=== PATIENT | male | born 1980 | race Caucasian/White ===

== ENCOUNTER 2019-05-27 02:57 | Emergency (ER) | payer SELFPAY ==
[2019-05-27 04:25] VITALS: BP 161/87; PULSE 76; TEMP 97.6; BMI 30.3
--- NOTE | 2019-05-27 04:36 | PDOC ---
*Physical Exam - Vital Signs Last Vital Signs Temp Pulse Resp BP Pulse Ox 97.6 F 76 19 161/87 98 05/27/19 03:00 05/27/19 03:00 05/27/19 03:00 05/27/19 03:00 05/27/19 03:00 Medical Decision Making - Medical Decision Making 05/27/19 04:36 Patient seen by the advanced practice provider under my supervision. Ancillary testing reviewed as necessary. I agree with plan as outlined by the advanced practice provider. Discharge - Discharge Information Problems reviewed: Yes Clinical Impression/Diagnosis: Back contusion Qualifiers: Encounter type: initial encounter Laterality: left Qualified Code(s): S20.222A - Contusion of left back wall of thorax, initial encounter Condition: Fair Disposition: HOME - Additional Discharge Information Prescriptions: Cyclobenzaprine HCl 10 mg PO TID #21 tablet Ibuprofen [Motrin -] 600 mg PO QID #28 tablet - Follow up/Referral Referrals: Julian Whitlock MD [Staff Physician] - - Patient Discharge Instructions Patient Printed Discharge Instructions: DI for Rib Contusion Additional Instructions: Your Discharge Instructions: You must call primary care physician within 24 hours to arrange follow-up. Return to the Emergency Department with any new, persistent or worsening symptoms, for fever, chills, SOB, dizziness or any other concerning changes that may occur. Continue Tylenol and Motrin for pain as needed. - Post Discharge Activity Work/Back to School Note: Back to Work
--- NOTE | 2019-05-27 04:38 | PDOC ---
History of Present Illness - General Chief Complaint: Back Pain Stated Complaint: BACK PAIN History Source: Patient Exam Limitations: No Limitations - History of Present Illness Initial Comments: 05/27/19 04:32 Patient is a 38-year-old male with no past medical history here with complaints of left upper back pain x2 days. Patient states that he had an injury, tripped fell hitting his back on a windowsill. States the next day he had some pain but it was tolerable however pain progressively worsened and tonight unable to sleep. Described the pain as a sharp pain 8/10 with movement. States that if he sitting still the pain is a 3/10. He is unable to take a deep breath because of the pain. PMHX: neg PSOCHX: neg etoh, drug, cig FamHX: Noncontributory ALL: NKDA GENERAL/CONSTITUTIONAL: [No fever or chills. No weakness. No weight change.] HEAD, EYES, EARS, NOSE AND THROAT: [No change in vision. No ear pain or discharge. No sore throat.] CARDIOVASCULAR: [No chest pain or shortness of breath.] RESPIRATORY: [No cough, wheezing, or hemoptysis.] GASTROINTESTINAL: [No nausea, vomiting, diarrhea or constipation. No rectal bleeding.] GENITOURINARY: [No dysuria, frequency, or change in urination.] MUSCULOSKELETAL: [No joint or muscle swelling or pain. No neck (+) back pain.] SKIN AND BREASTS: [No rash or easy bruising.] NEUROLOGIC: [No headache, vertigo, loss of consciousness, or loss of sensation.] PSYCHIATRIC: [No depression or anxiety.] ENDOCRINE: [No increased thirst. No abnormal weight change.] HEMATOLOGIC/LYMPHATIC: [No anemia, easy bleeding, or history of blood clots.] ALLERGIC/IMMUNOLOGIC: [No hives or skin allergy. No latex allergy.] GENERAL: [The patient is awake, alert, and fully oriented, in no acute distress.] HEAD: [Normal with no signs of trauma.] EYES: [Pupils equal, round and reactive to light, extraocular movements intact, sclera anicteric, conjunctiva clear.] ENT: [Ears normal, nares patent, oropharynx clear without exudates. Moist mucous membranes.] NECK: [Normal range of motion, supple without lymphadenopathy, JVD, or masses.] LUNGS: [Breath sounds equal, clear to auscultation bilaterally. No wheezes, and no crackles.] BACK: Left upper back end web developer to palpation, abrasions noted healing. HEART: [Regular rate and rhythm, normal S1 and S2 without murmur, rub.] ABDOMEN: [Soft, nontender, normoactive bowel sounds. No guarding, no rebound. No masses.] EXTREMITIES: [Normal range of motion, no edema. No clubbing or cyanosis. No cords, erythema, or tenderness.] NEUROLOGICAL: [Cranial nerves II through XII grossly intact. Normal speech, normal gait.] PSYCH: [Normal mood, normal affect.] SKIN: [Warm, Dry, normal turgor, no rashes or lesions noted.] Past History - Past Medical History Allergies/Adverse Reactions: Allergies Allergy/AdvReac Type Severity Reaction Status Date / Time No Known Allergies Allergy Verified 05/27/19 04:26 Home Medications: Ambulatory Orders Cyclobenzaprine HCl 10 mg PO TID #21 tablet 05/27/19 Ibuprofen [Motrin -] 600 mg PO QID #28 tablet 05/27/19 - Psycho Social/Smoking Cessation Hx Smoking History: Never smoked Hx Alcohol Use: No Drug/Substance Use Hx: No *Physical Exam - Vital Signs Last Vital Signs Temp Pulse Resp BP Pulse Ox 97.6 F 76 19 161/87 98 05/27/19 03:00 05/27/19 03:00 05/27/19 03:00 05/27/19 03:00 05/27/19 03:00 Medical Decision Making - Medical Decision Making 05/27/19 04:32 Patient is a 38-year-old male with no past medical history here with complaints of left upper back pain x2 days. Patient states that he had an injury, tripped fell hitting his back on a windowsill. States the next day he had some pain but it was tolerable however pain progressively worsened and tonight unable to sleep. Described the pain as a sharp pain 8/10 with movement. States that if he sitting still the pain is a 3/10. He is unable to take a deep breath because of the pain. Symptoms consistent with contusion of the back however will get x-ray to rule out any lung pathology or fractures of the ribs. Toradol 30 mg IM and Valium 5 mg p.o. Reassess Patient states feels slightly improved we will give Percocet 1 tab p.o. I discussed the physical exam findings, ancillary test results and final diagnoses with the patient. I answered all of the patient's questions. The patient was satisfied with the care received and felt comfortable with the discharge plan and treatment plan. The Patient agrees to follow up with the primary care physician within 24-72 hours. Discharge - Discharge Information Problems reviewed: Yes Clinical Impression/Diagnosis: Back contusion Qualifiers: Encounter type: initial encounter Laterality: left Qualified Code(s): S20.222A - Contusion of left back wall of thorax, initial encounter Condition: Fair Disposition: HOME - Additional Discharge Information Prescriptions: Cyclobenzaprine HCl 10 mg PO TID #21 tablet Ibuprofen [Motrin -] 600 mg PO QID #28 tablet - Follow up/Referral Referrals: Julian Whitlock MD [Staff Physician] - - Patient Discharge Instructions Patient Printed Discharge Instructions: DI for Rib Contusion Additional Instructions: Your Discharge Instructions: You must call primary care physician within 24 hours to arrange follow-up. Return to the Emergency Department with any new, persistent or worsening symptoms, for fever, chills, SOB, dizziness or any other concerning changes that may occur. Continue Tylenol and Motrin for pain as needed. - Post Discharge Activity Work/Back to School Note: Back to Work
[2019-05-27] MEDS ORDERED: diazePAM 5 MG TABLET PO ONE (04:39)
[2019-05-27] MEDS ORDERED: KETOROLAC TROMETHAMINE 30 MG/1 ML VIAL IM ONE (04:39)
[2019-05-27] MEDS ORDERED: LIDOCAINE 5% TOPICAL PATCH TP ONE (04:40)
[2019-05-27] MEDS ORDERED: diazePAM 5 MG TABLET ONE (04:46)
[2019-05-27] MEDS ORDERED: KETOROLAC TROMETHAMINE 30 MG/1 ML VIAL ONE (04:47)
[2019-05-27] MEDS ORDERED: LIDOCAINE 5% TOPICAL PATCH ONE (04:47)
[2019-05-27] MEDS ORDERED: LIDOCAINE PATCH REMOVAL MC SCH (22:00)
== END 2019-05-27 05:54 | disposition home or self-care (01) ==
LOC: JER 02:57
PROC: 3E0233Z Introduction of Anti-inflammatory into Muscle, Percutaneous Approach (ICD-10-PCS; principal; 2019-05-27)
DX: S20.222A Contusion of left back wall of thorax, initial encounter (principal)
CPT/HCPCS: 71101-TC-LT-FY; 99284-25

== ENCOUNTER 2022-10-15 21:23 | Emergency (ER) | payer OTHER ==
[2022-10-15 21:49] VITALS: RESP 18; BMI 28.2
[2022-10-15] MEDS ORDERED: FAMOTIDINE 20 MG/50 ML IVPB 20 MG/50 ML MG IVPB ONE (23:46)
[2022-10-15] MEDS ORDERED: MAG HYDROX/AL HYDROX/SIMETH 30 ML UNIT-DOSE CUP PO ONE (23:46)
[2022-10-15] MEDS ORDERED: ACETAMINOPHEN 1000 MG/100 ML BAG IVPB ONE (23:46)
[2022-10-16] MEDS ORDERED: ACETAMINOPHEN INJECTION 100 ML IVPB ONE (00:04)
[2022-10-16] MEDS ORDERED: MAG HYDROX/AL HYDROX/SIMETH 30 ML UNIT-DOSE CUP ONE (00:04)
[2022-10-16] MEDS ORDERED: FAMOTIDINE 20 MG/50 ML IVPB 20 MG/50 ML MG IVPB ONE (00:04)
[2022-10-16 00:42] LABS: BASO % 0.3 % (0-2.0); HEMATOCRIT 41.7 % (35.4-49); HEMOGLOBIN 14.3 GM/dL (11.7-16.9); LYMPH % 10.3 % (8-40); MCH 30.5 pg (25.7-33.7); MCHC 34.4 g/dl (32.0-35.9); MEAN CELL VOLUME 88.7 fl (80-96); MEAN PLT VOLUME 8.6 fl (7.5-11.1); MONO % 7.6 % (3.8-10.2); NEUT % 80.8 % (42.8-82.8); PLATELET COUNT 305 10^3/uL (134-434); RDW 13.4 % (11.9-15.9); WHITE BLOOD COUNT 12.1 K/mm3 (4.0-10.0)
[2022-10-16 00:59] LABS: POTASSIUM 3.8 mmol/L (3.5-5.1)
[2022-10-16 01:01] LABS: CALCIUM 8.7 mg/dL (8.5-10.1)
[2022-10-16 01:02] LABS: ALBUMIN 3.9 g/dl (3.4-5.0); BLOOD UREA NITROGEN 12.4 mg/dL (7-18); MAGNESIUM 2.4 mg/dL (1.8-2.4)
[2022-10-16 01:05] LABS: CREATININE 0.9 mg/dL (0.55-1.3)
[2022-10-16 01:06] LABS: BILIRUBIN,TOTAL 0.6 mg/dL (0.2-1); TOT PROT 7.1 g/dl (6.4-8.2)
[2022-10-16 01:21] VITALS: BP 123/77; PULSE 66; TEMP 97.3
== END 2022-10-16 01:57 | disposition home or self-care (01) ==
LOC: JER 21:23
PROC: 3E033GC Introduction of Other Therapeutic Substance into Peripheral Vein, Percutaneous Approach (ICD-10-PCS; principal; 2022-10-16)
PROC: 3E033NZ Introduction of Analgesics, Hypnotics, Sedatives into Peripheral Vein, Percutaneous Approach (ICD-10-PCS; 2022-10-16)
DX: R10.12 Left upper quadrant pain (principal)
CPT/HCPCS: 36415; 71045-TC-FY; 80053; 83690; 83735; 84484; 85025; 93005; 93010; 99285-25